=== PATIENT | female | born 1950 | race Caucasian/White ===

== ENCOUNTER 2018-02-01 12:46 | Day surgery (SDC) | payer OTHER ==
[~2018-02-01 12:46] MED LIST: VERSED ONE
[2018-02-01] MEDS ORDERED: TETRACAINE 0.5% OPHTH 1 DOSE AFFEYE ONE ×2 (12:50→14:16)
[2018-02-01] MEDS ORDERED: VIGAMOX 0.5% OPHTH 1 DOSE AFFEYE ONE ×5 (12:51→14:44)
[2018-02-01] MEDS ORDERED: NS 500 ML IV 500 ML IV ONE (12:53)
[2018-02-01] MEDS ORDERED: PROLENSA OPHTH 1 DOSE AFFEYE ONE (13:02)
[2018-02-01] MEDS ORDERED: ALPHAGAN-P OPHTH 1 DOSE AFFEYE ONE (13:03)
[2018-02-01] MEDS ORDERED: AK-DILATE 2.5% OPHTH 1 DOSE OP ONE ×6 (13:04→13:09)
[2018-02-01] MEDS ORDERED: CYCLOGYL 1% OPHTH 1 DOSE OP ONE ×6 (13:04→13:09)
[2018-02-01] MEDS ORDERED: MYDRIACIL OPHTH 1 DOSE AFFEYE ONE ×6 (13:04→13:09)
[2018-02-01] MEDS ORDERED: BETADINE OPHTH SOLN 5% EACHEYE ONE (14:15)
[2018-02-01] MEDS ORDERED: ADRENALINE CHL INJ IJ ONE (14:30)
[2018-02-01] MEDS ORDERED: DUOVISC IO ONE (14:30)
[2018-02-01] MEDS ORDERED: XYLOCAINE-MPF 1% IJ ONE (14:30)
[2018-02-01] MEDS ORDERED: BSS OPHTH (PLAIN) 500 ML with VANCOMYCIN HCL 500 MG VIAL 25 MG, ADRENALINE CHL INJ 1 MG IR ONE ×3 (14:30)
[2018-02-01 16:37] VITALS: BP 137/62
== END 2018-02-01 15:05 | disposition home or self-care (01) ==
LOC: SURG1 12:46
PROVIDERS: ATTEND Ophthalmology
PROC: 08RJ3JZ Replacement of Right Lens with Synthetic Substitute, Percutaneous Approach (ICD-10-PCS; principal; 2018-02-01 18:15)
PROC: 08DJ3ZZ Extraction of Right Lens, Percutaneous Approach (ICD-10-PCS; principal; 2018-02-01 18:15)
DX: H25.11 Age-related nuclear cataract, right eye (principal); H25.011 Cortical age-related cataract, right eye; H25.041 Posterior subcapsular polar age-related cataract, right eye; H52.221 Regular astigmatism, right eye
CPT/HCPCS: A4217; J0170; J2250; J3370